=== PATIENT | female | born 1995 | race Caucasian/White ===

== ENCOUNTER 2018-08-11 16:07 | Emergency (ER) | payer BC, MEDICAID ==
[~2018-08-11] VITALS: Ht 152.4 cm; Wt 56.7 kg
[2018-08-11 16:18] VITALS: BP 129/76
[2018-08-11] MEDS ORDERED: ACETAMINOPHEN ES 500 MG TABLET ONE (17:03)
[2018-08-11] MEDS ORDERED: ACETAMINOPHEN 325 MG TABLET PO ONE (17:30)
== END 2018-08-11 19:01 | disposition home or self-care (01) ==
LOC: ER 16:10
DX: S62.336A Displaced fracture of neck of fifth metacarpal bone, right hand, initial encounter for closed fracture (principal); F10.10 Alcohol abuse, uncomplicated; Y90.9 Presence of alcohol in blood, level not specified; Y04.0XXA Assault by unarmed brawl or fight, initial encounter; Y93.89 Activity, other specified; Y92.89 Other specified places as the place of occurrence of the external cause; Y99.8 Other external cause status
CPT/HCPCS: 73130-TC

== ENCOUNTER 2022-01-27 22:01 | Emergency (ER) | payer BC, MEDICAID ==
[~2022-01-27] VITALS: Ht 157.5 cm; Wt 63.5 kg
[2022-01-27 22:46] VITALS: BP 137/98
[2022-01-27] MEDS ORDERED: IBUPROFEN 400 MG TABLET ONE (22:49)
[2022-01-27] MEDS ORDERED: IBUPROFEN 400 MG TABLET PO ONE (23:00)
== END 2022-01-27 22:55 | disposition home or self-care (01) ==
LOC: ER 22:06
DX: M62.838 Other muscle spasm (principal); V49.59XA Passenger injured in collision with other motor vehicles in traffic accident, initial encounter; Y93.89 Activity, other specified; Y92.413 State road as the place of occurrence of the external cause; Y99.8 Other external cause status

== ENCOUNTER 2022-05-11 15:05 | Emergency (ER) | payer MEDICAID ==
[~2022-05-11] VITALS: Ht 157.5 cm; Wt 61.2 kg
[2022-05-11 15:22] VITALS: BP 139/96
[2022-05-11] MEDS ORDERED: IBUPROFEN 600 MG TABLET PO ONE (15:30)
[2022-05-11] MEDS ORDERED: IBUPROFEN 600 MG TABLET ONE (15:53)
[2022-05-11] MEDS ORDERED: IBUP-1957 PO (16:14)
== END 2022-05-11 17:03 | disposition home or self-care (01) ==
LOC: ER 15:13
DX: S62.327A Displaced fracture of shaft of fifth metacarpal bone, left hand, initial encounter for closed fracture (principal); Z79.1 Long term (current) use of non-steroidal anti-inflammatories (NSAID); W22.8XXA Striking against or struck by other objects, initial encounter; Y93.89 Activity, other specified; Y92.89 Other specified places as the place of occurrence of the external cause; Y99.8 Other external cause status
CPT/HCPCS: 73130-TC